=== PATIENT | male | born 1970 | race Two or more races ===

== ENCOUNTER 2018-03-25 10:54 | Emergency (ER) | payer MEDICAID ==
--- NOTE | 2018-03-25 11:16 | EDPHY ---
H & P Stated Complaint: Bilat knee pain Time Seen by Provider: 03/25/18 11:16 - Personal History Current Tetanus Diphtheria and Acellular Pertussis (TDAP): Yes - Medical/Surgical History Hx Asthma: No Hx Chronic Respiratory Disease: No Hx Diabetes: No Hx Cardiac Disease: No Hx Renal Disease: No Hx Cirrhosis: No Hx Alcoholism: No Other PMH: Denies - Social History Smoking Status: Current some day smoker Constitutional: Initial Vital Signs Temperature (C) 37.0 C 03/25/18 11:07 Heart Rate 82 03/25/18 11:07 Respiratory Rate 18 03/25/18 11:07 Blood Pressure 158/105 H 03/25/18 11:07 O2 Sat (%) 97 03/25/18 11:07 O2 Delivery Mode Room Air Allergies/Adverse Reactions: No Known Allergies Allergy (Unverified 03/25/18 11:11) Home Medications: Medication Instructions Recorded methylPREDNISolone [Medrol Dose 1 each PO AD #1 ea 03/25/18 Gregorio] Medical Decision Making - Diagnostics Imaging: I viewed and interpreted images myself ED Course/Re-evaluation: CHIEF COMPLAINT: Bilateral knee swelling and pain HISTORY OF PRESENT ILLNESS: The patient is a 47 y/o male complaining of bilateral knee pain and swelling onset around 1 week ago. He has had 2 or 3 episodes of knee swelling in the past , primarily in the left knee. The pain and swelling has decreased, but he is having more pain and "popping" in his right knee. When he lies down, he has very mild left hip pain. His pain is also increased with ROM. He denies recent trauma. No fever, headache, sore throat, chest pain, shortness of breath, abdominal pain, urinary or bowel complaints, numbness, paresthesias. REVIEW OF SYSTEMS: A comprehensive 10 system review of systems is otherwise negative aside from elements mentioned in the history of present illness and medical decision making. PHYSICAL EXAM: HR, BP, O2 Sat, RR. Temp noted General Appearance: Alert, well hydrated, appropriate, and non-toxic appearing. Head: Atraumatic without scalp tenderness or obvious injury Eyes: Pupils equal, round, reactive to light and accommodation, EOMI, no trauma , no injection. Ears: Clear bilaterally, no perforation, normal landmarks Nose: Atraumatic, no rhinorrhea, clear. Throat: There is no erythema or exudates, no lesions, normal tonsils, mucus membranes moist. Neck: Supple, 2+ carotid upstroke, nontender, no lymphadenopathy. Respiratory: No retractions, no distress, no wheezes, and no accessory muscle use. Lungs are clear to auscultation bilaterally. Cardiovascular: Regular rate and rhythm, no murmurs, rubs, or gallops. Bilateral carotid, radial, dorsalis pedis, and posterior tibial pulses intact. Good capillary refill all extremities. Gastrointestinal: Abdomen is soft, nontender, non-distended, no masses, no rebound, no guarding, no peritoneal signs. Musculoskeletal: Bilateral knee swelling with restricted ROM secondary to fluid. No erythema and atraumatic. Neurological: Alert, appropriate, and interactive. The patient has normal DTRs and non-focal cranial nerves, motor, sensory, and cerebellar exam. Skin: No rashes, good turgor, no nodules on palpation. Past medical history: Denies Past surgical history: Denies Family history: Denies Social history: at bedside, employed in construction, lives in [place] DIAGNOSTICS/PROCEDURES/CRITICAL CARE TIME: Bilateral knee x-rays: No osseous injury or deformity. Bilateral knee effusions DIFFERENTIAL DIAGNOSIS: The differential diagnosis for the patient's knee swelling and pain included but was not limited to effusion, osteoarthritis, fracture, ligamentous injury, contusion, muscular strain, and meniscus injury. MEDICAL DECISION MAKING: The patient is a 47 y/o male presenting with bilateral knee pain and swelling onset around 1 week ago. On exam he has bilateral knee swelling with restricted ROM secondary to the fluid. There is no erythema or trauma and he does not appear systemically ill. Bilateral knee x-rays ordered. 1148: I reviewed patient's knee x-rays which reveal bilateral knee effusions. No signs of osseous injury or osteoarthritis. 1150: Reassessed patient and discussed imaging findings. I have advised him to follow up with an orthopedic surgeon within one week for his bilateral knee effusions. I have also prescribed him a Medrol-dose gregorio; 40mg PO Prednisone administered prior to discharge. Return precautions provided; patient is comfortable with this plan. Departure - Departure Disposition: Home, Routine, Self-Care Clinical Impression: Bilateral knee effusions Condition: Good Instructions: Swollen Knee Joint (ED) Additional Instructions: 1. Follow up with an orthopedic surgeon within one week. 2. Return to the emergency department for worsening pain, swelling, numbness, weakness or other concerns. 3. Take the Medrol-dose gregorio as prescribed. Please start this tomorrow on . Referrals: Ramón Osuna MD [Medical Doctor] - As per Instructions Prescriptions: methylPREDNISolone [Medrol Dose Gregorio] 1 each PO AD #1 ea Report Scribed for: Fidel Jane Report Scribed by: Ly Naranjo Date of Report: 03/25/18 Time of Report: 11:17
[2018-03-25] MEDS ORDERED: predniSONE 20 MG TAB PO ONE (11:47)
[2018-03-25 12:07] VITALS: BP 171/105
== END 2018-03-25 12:07 | disposition home or self-care (01) ==
DX: M25.461 Effusion, right knee (principal); M25.462 Effusion, left knee; Z72.0 Tobacco use
CPT/HCPCS: J7512

== ENCOUNTER 2018-07-01 15:56 | Emergency (ER) | payer MEDICAID, OTHER ==
[2018-07-01 16:02] VITALS: BP 181/117
--- NOTE | 2018-07-01 16:45 | EDPHY ---
HPI/HX/ROS/PE/MDM Narrative: CHIEF COMPLAINT: Right-sided tooth pain HPI: This patient is a 47 year old male with history of hypertension. He woke this morning with severe right-sided jaw/tooth pain. This is over the same tooth where he had a root canal last year. He took aspirin with no relief of his discomfort. His regular dentist is in [place] and her could not find any local emergency dentists with availability today, so he presents here to the emergency department for further evaluation. No fever, nausea, vomiting, or other associated symptoms. No rashes. No recent trauma. No chest pain or shortness of breath. REVIEW OF SYSTEMS: A comprehensive 10 system review of systems is otherwise negative aside from elements mentioned in the history of present illness and medical decision making. PMH: Hypertension. SOCIAL HISTORY: Lives in [place]. PHYSICAL EXAM: General:Patient is alert, in no acute distress. ENT:Eyes are normal to inspection. ENT inspection normal, no obvious swelling, erythema, abscess. Tenderness to affected right lower molar noted. Dental caries present. Neck: Normal inspection. Full range of motion. Respiratory:No respiratory distress. Breath sounds normal bilaterally. Cardiovascular: Regular rate and rhythm. Strong peripheral pulses. Normal cap refill. Skin: Normal color. No rash. Warm and dry. Extremities: Normal appearance. Full range of motion. Neuro: Oriented x3. Normal motor function. Normal sensory function. ED Course: 47 y/o male presents with right-sided jaw pain onset this morning. He plans to follow up with his dentist but is concerned for possible infection. He is not systemically ill at this time. No obvious evidence of infection on exam. Plan to provide prescription for Amoxicillin. Plan to discharge home in good condition. He will follow with dental providers as soon as possible. Follow up and return precautions discussed. He is comfortable with this plan. As pain is reproducible with palpation of tooth, I do not think this represents an anginal equivalent. General Time Seen by Provider: 07/01/18 16:39 Initial Vital Signs: Initial Vital Signs Temperature (C) 36.4 C 07/01/18 15:59 Heart Rate 63 07/01/18 15:59 Respiratory Rate 16 07/01/18 15:59 Blood Pressure 181/117 H 07/01/18 15:59 O2 Sat (%) 97 07/01/18 15:59 O2 Delivery Mode Room Air Allergies/Adverse Reactions: No Known Allergies Allergy (Verified 07/01/18 15:58) Home Medications: Medication Instructions Recorded Amoxicillin Trihydrate 500 mg PO TID 7 Days cap 07/01/18 [Amoxicillin] Departure - Departure Disposition: Home, Routine, Self-Care Clinical Impression: Tooth pain Condition: Good Instructions: Toothache (ED) Additional Instructions: Take amoxicillin as prescribed. Follow up with your dentist as soon as possible. Return for fever, uncontrollable pain, or other worsening of condition. Referrals: [facility] [Outside] - As per Instructions Prescriptions: Amoxicillin Trihydrate [Amoxicillin] 500 mg PO TID 7 Days cap Report Scribed for: Mahesh Salas Report Scribed by: Kesha Reaves Date of Report: 07/01/18 Time of Report: 17:28 Physician Review and Approval Statement: Portions of this note were transcribed by an ED scribe. I personally performed the history, physical exam, and medical decision making; and confirm the accuracy of the information in the transcribed note.
== END 2018-07-01 17:13 | disposition home or self-care (01) ==
DX: K08.89 Other specified disorders of teeth and supporting structures (principal); I10 Essential (primary) hypertension